=== PATIENT | male | born 1990 | race Two or more races ===

== ENCOUNTER 2017-07-28 17:25 | Emergency (ER) | payer SELFPAY ==
[~2017-07-28] VITALS: Ht 177.8 cm; Wt 115.0 kg
[2017-07-28] MEDS ORDERED: KETOROLAC 60MG/2ML VIAL IM SCH (19:15)
[2017-07-28 20:34] VITALS: BP 134/83
== END 2017-07-28 21:05 | disposition home or self-care (01) ==
LOC: ER 17:25
DX: R09.1 Pleurisy (principal)
CPT/HCPCS: 71045; 96372; 99283; J1885; Z7610